=== PATIENT | female | born 1965 | race Caucasian/White ===

== ENCOUNTER → 2020-06-21 | Day surgery (SDC) | payer OTHER ==
[~2020-06-21] MED LIST: LOPRESSOR50 MG PO; MUSCLE RELAXER; PAXIL10 MG PO
== END | disposition home or self-care (01) ==
LOC: FAS 08:29
DX: Z12.11 Encounter for screening for malignant neoplasm of colon (principal); K64.9 Unspecified hemorrhoids; E55.9 Vitamin D deficiency, unspecified; I10 Essential (primary) hypertension; R00.1 Bradycardia, unspecified; M54.31 Sciatica, right side; M62.838 Other muscle spasm; F32.9 Major depressive disorder, single episode, unspecified; F17.210 Nicotine dependence, cigarettes, uncomplicated; Z83.3 Family history of diabetes mellitus; Z98.51 Tubal ligation status; Z20.822 Contact with and (suspected) exposure to COVID-19
CPT/HCPCS: 93005; J2250; J2704; J7120